=== PATIENT | male | born 1940 | race Caucasian/White ===

== ENCOUNTER 2017-04-26 07:46 | Inpatient (IN) | payer OTHER, MEDICARE ==
[~2017-04-26] VITALS: Ht 177.8 cm; Wt 92.0 kg
[2017-04-26 07:47] VITALS: BP 174/75; PULSE 67; RESP 16; TEMP 99.1; O2SAT 96
[2017-04-26] MEDS ORDERED: ONDANSETRON HCL 4 MG/2 ML VIAL IV PUSH ONE (08:00)
--- NOTE | 2017-04-26 08:09 | PD ---
HPI Chief Complaint: GI Complaint Time Seen by Provider: 07:55 Travel History International Travel<30 days: No Contact w/Intl Traveler<30days: No Traveled to known affect area: No History of Present Illness HPI 77 y/o male presents with lower abdominal pain and nausea over the past couple of days. He states he has history of diverticulitis. He states he had a colonoscopy but did not have adequate prep but they did tell him he had diverticulitis. He states that he also [place] any bowel they just saw the area. He denies any other concurrent complaints. Quality is pressure. Severity is moderate. He denies other specific modifying factors. Location is bilateral lower. PFSH Past Medical History Narrative Medical Hypothyroid, high cholesterol, diverticulitis Past Surgical History Narrative Surgical Hernia, diagnostic laparoscopic examination Social History Alcohol Use: No Tobacco Use: No Substance Use: No Allergies-Medications (Allergen,Severity, Reaction): Coded Allergies: No Known Allergies (Unverified , 04/26/17) Review of Systems Except as stated in HPI: all other systems reviewed are Neg Physical Exam Narrative GENERAL: 77-year-old male in no apparent distress SKIN: Focused skin assessment warm/dry. HEAD: Atraumatic. Normocephalic. EYES: Pupils equal and round. No scleral icterus. No injection or drainage. ENT: No nasal bleeding or discharge. Mucous membranes pink and moist. NECK: Trachea midline. No JVD. CARDIOVASCULAR: Regular rate and rhythm. RESPIRATORY: No accessory muscle use. Clear to auscultation. Breath sounds equal bilaterally. GASTROINTESTINAL: Abdomen soft, tender to lower abdomen, nondistended. MUSCULOSKELETAL: No obvious deformities. NEUROLOGICAL: Awake and alert. No obvious cranial nerve deficits. Motor grossly within normal limits. Normal speech. PSYCHIATRIC: Appropriate mood and affect; insight and judgment normal. Data Data Last Documented VS Vital Signs Date Time Temp Pulse Resp B/P (MAP) Pulse Ox O2 Delivery O2 Flow Rate FiO2 04/26/17 07:47 99.1 67 16 174/75 (108) 96 Room Air Orders Orders Complete Blood Count With Diff (04/26/17 07:56) Comprehensive Metabolic Panel (04/26/17 07:56) Urinalysis - C+S If Indicated (04/26/17 07:56) Lipase (04/26/17 07:56) Ct Abd/Pel W Iv Contrast(Rout) (04/26/17 ) Iv Access Insert/Monitor (04/26/17 07:56) Ondansetron Inj (Zofran Inj) (04/26/17 08:00) Iohexol 350 Inj (Omnipaque 350 Inj) (04/26/17 09:11) Sodium Chlorid 0.9% 500 Ml Inj (Ns 500 M (04/26/17 10:15) Morphine Inj (Morphine Inj) (04/26/17 11:15) Ciprofloxacin 400 Mg Premix (Cipro 400 M (04/26/17 11:45) Metronidazole 500 Mg Inj (Flagyl 500 Mg (04/26/17 11:45) Admit Order (Ed Use Only) (04/26/17 11:44) Labs Laboratory Tests Test 04/26/17 08:10 04/26/17 08:15 White Blood Count 12.7 TH/MM3 Red Blood Count 4.67 MIL/MM3 Hemoglobin 14.3 GM/DL Hematocrit 42.7 % Mean Corpuscular Volume 91.4 FL Mean Corpuscular Hemoglobin 30.6 PG Mean Corpuscular Hemoglobin Concent 33.4 % Red Cell Distribution Width 12.8 % Platelet Count 224 TH/MM3 Mean Platelet Volume 8.8 FL Neutrophils (%) (Auto) 74.9 % Lymphocytes (%) (Auto) 14.0 % Monocytes (%) (Auto) 9.8 % Eosinophils (%) (Auto) 0.9 % Basophils (%) (Auto) 0.4 % Neutrophils # (Auto) 9.5 TH/MM3 Lymphocytes # (Auto) 1.8 TH/MM3 Monocytes # (Auto) 1.2 TH/MM3 Eosinophils # (Auto) 0.1 TH/MM3 Basophils # (Auto) 0.1 TH/MM3 CBC Comment DIFF FINAL Differential Comment Blood Urea Nitrogen 17 MG/DL Creatinine 1.09 MG/DL Random Glucose 131 MG/DL Total Protein 7.9 GM/DL Albumin 4.0 GM/DL Calcium Level 9.1 MG/DL Alkaline Phosphatase 78 U/L Aspartate Amino Transf (AST/SGOT) 28 U/L Alanine Aminotransferase (ALT/SGPT) 27 U/L Total Bilirubin 0.9 MG/DL Sodium Level 137 MEQ/L Potassium Level 4.1 MEQ/L Chloride Level 103 MEQ/L Carbon Dioxide Level 29.0 MEQ/L Anion Gap 5 MEQ/L Estimat Glomerular Filtration Rate 66 ML/MIN Lipase 333 U/L Urine Color YELLOW Urine Turbidity CLEAR Urine pH 7.5 Urine Specific [place] GREATER THAN 1.050 Urine Protein TRACE mg/dL Urine Glucose (UA) NEG mg/dL Urine Ketones NEG mg/dL Urine Occult Blood NEG Urine Nitrite NEG Urine Bilirubin NEG Urine Urobilinogen LESS THAN 2.0 MG/DL Urine Leukocyte Esterase NEG Urine RBC LESS THAN 1 /hpf Urine WBC LESS THAN 1 /hpf Urine Mucus FEW /lpf Microscopic Urinalysis Comment CULT NOT INDICATED MDM Medical Decision Making Medical Screen Exam Complete: Yes Emergency Medical Condition: Yes Medical Record Reviewed: Yes (Past history confirmed) Interpretation(s) CBC & BMP Diagram 04/26/17 08:10 Total Protein 7.9, Albumin 4.0, Calcium Level 9.1, Alkaline Phosphatase 78, Aspartate Amino Transf (AST/SGOT) 28, Alanine Aminotransferase (ALT/SGPT) 27, Total Bilirubin 0.9 Last 24 hours Impressions Abdomen/Pelvis CT 04/26/17 0000 Signed Impressions: Service Date/Time: Wednesday, April 26, 2017 09:13 - CONCLUSION: 1. Findings are suspicious for diverticulitis with induration of the fat about a long segment of proximal and mid sigmoid (11 cm). 2. No focal abscess and no evidence of free fluid. Minesh Jonas MD Differential Diagnosis Diverticulitis, abscess, stone, UTI Narrative Course We will check blood work, urinalysis, CT scan abdominal pelvis and dose with Zofran and fluids and reevaluate ed workup with 11 cm area of diverticulitis. Given morphine and agrees to observation. Will dose with Cipro and Flagyl Physician Communication Physician Communication dr bartlett agrees to admit Diagnosis Primary Impression: Diverticulitis Admitting Information Admitting Physician Requests: Observation Gabby Naranjo MD Apr 26, 2017 08:09
[2017-04-26 08:39] LABS: AUTOMATED NEUTROPHIL # 9.5 TH/MM3 (1.8-7.7); BASOPHIL # 0.1 TH/MM3 (0-0.2); BASOPHIL % 0.4 % (0.0-2.0); EOSINOPHIL # 0.1 TH/MM3 (0-0.4); EOSINOPHIL % 0.9 % (0.0-4.0); HEMATOCRIT 42.7 % (39.0-51.0); HEMOGLOBIN 14.3 GM/DL (13.0-17.0); LYMPHOCYTE # 1.8 TH/MM3 (1.0-4.8); MEAN CELL VOLUME 91.4 FL (80.0-100.0); MEAN CORPUSCULAR HEMOGLOBIN 30.6 PG (27.0-34.0); MEAN CORPUSCULAR HGB CONC 33.4 % (32.0-36.0); MEAN PLATELET VOLUME 8.8 FL (7.0-11.0); MONO % 9.8 % (0.0-8.0); MONOCYTE # 1.2 TH/MM3 (0-0.9); NEUT % 74.9 % (16.0-70.0); PLATELET COUNT 224 TH/MM3 (150-450); RED BLOOD COUNT 4.67 MIL/MM3 (4.50-5.90); RED CELL DISTRIBUTION WIDTH 12.8 % (11.6-17.2); WHITE BLOOD COUNT 12.7 TH/MM3 (4.0-11.0)
[2017-04-26 08:53] LABS: AST (GOT) 28 U/L (15-37); BLOOD UREA NITROGEN 17 MG/DL (7-18); CALCIUM 9.1 MG/DL (8.5-10.1); CHLORIDE 103 MEQ/L (98-107); CREATININE 1.09 MG/DL (0.60-1.30); GLOMERULAR FILTRATION RATE 66 ML/MIN (>89); GLUCOSE,RANDOM 131 MG/DL (74-106); SODIUM (NA) 137 MEQ/L (136-145)
[2017-04-26 08:55] LABS: ALT (GPT) 27 U/L (12-78)
[2017-04-26 08:57] LABS: ALKALINE PHOSPHATASE 78 U/L (45-117); TOTAL BILIRUBIN ADULT 0.9 MG/DL (0.2-1.0); TOTAL PROTEIN 7.9 GM/DL (6.4-8.2)
[2017-04-26] MEDS ORDERED: IOHEXOL 350 MG/ML 10 ML VIAL (for RAD DIAG) IVCONTRAST ONE (09:11)
--- NOTE | 2017-04-26 09:46 | RADRPT ---
EXAM DATE/TIME: 04/26/2017 09:13 [facility] COMPARISON: No previous studies available for comparison. INDICATIONS : Lower abdominal pain. IV CONTRAST: 96 cc Omnipaque 350 (iohexol) IV ORAL CONTRAST: No oral contrast ingested. RADIATION DOSE: 13.82 CTDIvol (mGy) MEDICAL HISTORY : Diverticulitis. SURGICAL HISTORY : None. ENCOUNTER: Initial ACUITY: 3 days PAIN SCALE: 6/10 LOCATION: Bilateral lower quadrant TECHNIQUE: Volumetric scanning of the abdomen and pelvis was performed. Using automated exposure control and ad justment of the mA and/or kV according to patient size, radiation dose was kept as low as reasonably achievable to obtain optimal diagnostic quality images. DICOM format image data is available electro nically for review and comparison. FINDINGS: LOWER LUNGS: The visualized lower lungs are clear. LIVER: Homogeneous density without lesion. There is no dilation of the biliary tree. No calcified [place] es. SPLEEN: Normal size without lesion. PANCREAS: Within normal limits. KIDNEYS: Normal in size and shape. There is no mass, stone or hydronephrosis. ADRENAL GLANDS: Within normal limits. VASCULAR: There is no aortic aneurysm. BOWEL/MESENTERY: No dilated loops of small or large bowel. There is scattered diverticula throughout the transverse l eft and sigmoid colon. There is an abnormal appearance to the fat about the proximal and mid sigmoid colon with induration of the perisigmoid fat characteristic of diverticulitis. The induration exten ds in excess of 11 cm in length. No focal fluid collections seen and no evidence of free fluid. ABDOMINAL WALL: Within normal limits. RETROPERITONEUM: There is no lymphadenopathy. BLADDER: No wall thickening or mass. REPRODUCTIVE: Within normal limits. INGUINAL: There is no lymphadenopathy or hernia. MUSCULOSKELETAL: Mild right lumbar curvature and degenerative changes in the posterior elements. CONCLUSION: 1. Findings are suspicious for diverticulitis with induration of the fat about a long segment of prox imal and mid sigmoid (11 cm). 2. No focal abscess and no evidence of free fluid. Minesh Jonas MD on April 26, 2017 at 9:31 Board Certified Radiologist. This report was verified electronically.
[2017-04-26] MEDS ORDERED: SODIUM CHLORID 0.9% 500 ML INJ 500 ML IV ONE (10:15)
[2017-04-26 10:52] LABS: BILIRUBIN, URINE NEG (NEG); BLOOD, URINE NEG (NEG); GLUCOSE,URINE NEG (NEG); KETONE, URINE NEG (NEG); MUCUS URINE FEW /lpf (OCC); NITRITE,URINE NEG (NEG); PH, URINE 7.5 (5.0-8.5); URINE COLOR YELLOW (YELLW/STRAW); URINE LEUKOCYTE ESTERASE NEG (NEG)
[2017-04-26] MEDS ORDERED: MORPHINE SULFATE 4 MG/ML INJ IV PUSH ONE (11:15)
[2017-04-26] MEDS ORDERED: metroNIDAZOLE 500 MG INJ 100 ML IV ONE (11:45)
[2017-04-26] MEDS ORDERED: CIPROFLOXACIN 400 MG PREMIX 200 ML IV ONE (11:45)
[2017-04-26] MEDS ORDERED: MORPHINE SULFATE 4 MG/ML INJ IV PUSH PRN (12:15)
[2017-04-26] MEDS ORDERED: SODIUM CHLORIDE 0.9% FLUSH 10 ML FLUSH IV FLUSH PRN (12:15)
[2017-04-26] MEDS ORDERED: ONDANSETRON HCL 4 MG/2 ML VIAL IV PUSH PRN (12:15)
[2017-04-26] MEDS ORDERED: ACETAMINOPHEN 325 MG TAB PO PRN (12:15)
[2017-04-26] MEDS ORDERED: ENALAPRILAT 2.5 MG/2 ML VIAL IV PUSH PRN (12:15)
[2017-04-26 12:55] VITALS: BP 120/70; PULSE 68; RESP 18; TEMP 98.2; O2SAT 96
--- NOTE | 2017-04-26 13:08 | HHI.HP ---
[facility] Primary Care Physician Gary Michaels MD Admission Diagnosis diverticulitis Diagnoses: (1) Acute diverticulitis Chief Complaint: Abdominal pain Travel History International Travel<30 Days: No Contact w/Intl Traveler <30 Da: No Traveled to Known Affected Are: No History of Present Illness 77-year-old man with a history of diverticular disease, thyroid disease, hyperlipidemia came to the emergency department for evaluation of worsening symptoms of diffuse abdominal pain x 3 days duration, rated 8/10 in intensity associated with dry hives and nausea. Patient reports prior history of diverticulitis treated with by mouth antibiotics some years ago. States, this a.m. the abdominal pain was so severe that he decided to check himself to the emergency department. CT abdomen revealed findings suspicious for diverticulitis and patient has elevated WBC. He denies any febrile episode and he has no chest pain Review of Systems Except as stated in HPI: all other systems reviewed are Neg Past Family Social History Past Medical History Hypothyroid, Hyperlipidemia History of diverticulitis Past Surgical History Hernia repair, diagnostic laparoscopic examination Reported Medications See EMR Allergies: Coded Allergies: No Known Allergies (Unverified , 04/26/17) Family History Hypertension Social History Alcohol Use: No Tobacco Use: No Substance Use: No Physical Exam Vital Signs Vital Signs Date Time Temp Pulse Resp B/P (MAP) Pulse Ox O2 Delivery O2 Flow Rate FiO2 04/26/17 12:55 98.2 68 18 120/70 (87) 96 04/26/17 07:47 99.1 67 16 174/75 (108) 96 Room Air Physical Exam GENERAL: This is a well-nourished, well-developed patient, in no apparent distress. SKIN: No rashes, ecchymoses or lesions. Cool and dry. HEAD: Atraumatic. Normocephalic. No temporal or scalp tenderness. EYES: Pupils equal round and reactive. Extraocular motions intact. No scleral icterus. No injection or drainage. ENT: Nose without bleeding, purulent drainage or septal hematoma. Throat without erythema, tonsillar hypertrophy or exudate. Uvula midline. Airway patent. NECK: Trachea midline. No JVD or lymphadenopathy. Supple, nontender, no meningeal signs. CARDIOVASCULAR: Regular rate and rhythm without murmurs, gallops, or rubs. RESPIRATORY: Clear to auscultation. Breath sounds equal bilaterally. No wheezes , rales, or rhonchi. GASTROINTESTINAL: Abdomen soft, mildly tender, nondistended. No hepato- splenomegaly, or palpable masses. No guarding. MUSCULOSKELETAL: Extremities without clubbing, cyanosis, or edema. No joint tenderness, effusion, or edema noted. No calf tenderness. Negative Homans sign bilaterally. NEUROLOGICAL: Awake and alert. Cranial nerves II through XII intact. Motor and sensory grossly within normal limits. Five out of 5 muscle strength in all muscle groups. Normal speech. Laboratory Laboratory Tests Test 04/26/17 08:10 04/26/17 08:15 White Blood Count 12.7 Red Blood Count 4.67 Hemoglobin 14.3 Hematocrit 42.7 Mean Corpuscular Volume 91.4 Mean Corpuscular Hemoglobin 30.6 Mean Corpuscular Hemoglobin Concent 33.4 Red Cell Distribution Width 12.8 Platelet Count 224 Mean Platelet Volume 8.8 Neutrophils (%) (Auto) 74.9 Lymphocytes (%) (Auto) 14.0 Monocytes (%) (Auto) 9.8 Eosinophils (%) (Auto) 0.9 Basophils (%) (Auto) 0.4 Neutrophils # (Auto) 9.5 Lymphocytes # (Auto) 1.8 Monocytes # (Auto) 1.2 Eosinophils # (Auto) 0.1 Basophils # (Auto) 0.1 CBC Comment DIFF FINAL Differential Comment Blood Urea Nitrogen 17 Creatinine 1.09 Random Glucose 131 Total Protein 7.9 Albumin 4.0 Calcium Level 9.1 Alkaline Phosphatase 78 Aspartate Amino Transf (AST/SGOT) 28 Alanine Aminotransferase (ALT/SGPT) 27 Total Bilirubin 0.9 Sodium Level 137 Potassium Level 4.1 Chloride Level 103 Carbon Dioxide Level 29.0 Anion Gap 5 Estimat Glomerular Filtration Rate 66 Lipase 333 Urine Color YELLOW Urine Turbidity CLEAR Urine pH 7.5 Urine Specific [place] GREATER THAN 1.050 Urine Protein TRACE Urine Glucose (UA) NEG Urine Ketones NEG Urine Occult Blood NEG Urine Nitrite NEG Urine Bilirubin NEG Urine Urobilinogen LESS THAN 2.0 Urine Leukocyte Esterase NEG Urine RBC LESS THAN 1 Urine WBC LESS THAN 1 Urine Mucus FEW Microscopic Urinalysis Comment CULT NOT INDICATED Result Diagram: 04/26/17 0810 04/26/17 0810 Imaging Last Impressions Abdomen/Pelvis CT 04/26/17 0000 Signed Impressions: Service Date/Time: Wednesday, April 26, 2017 09:13 - CONCLUSION: 1. Findings are suspicious for diverticulitis with induration of the fat about a long segment of proximal and mid sigmoid (11 cm). 2. No focal abscess and no evidence of free fluid. Minesh Jonas MD Septic Shock Reassessment Septic shock perfusion: reassessment completed Caprini VTE Risk Assessment Caprini VTE Risk Assessment: Mod/High Risk (score >= 2) Caprini Risk Assessment Model Point Value = 1 Point Value = 2 Point Value = 3 Point Value = 5 Age 41-60 Minor surgery BMI > 25 kg/m2 Swollen legs Varicose veins or History of unexplained or recurrent spontaneous Oral contraceptives or hormone replacement Sepsis (< 1 month) Serious lung disease, including pneumonia (< 1 month) Abnormal pulmonary function Acute myocardial infarction Congestive heart failure (< 1 month) History of inflammatory bowel disease Medical patient at bed rest Age 61-74 Arthroscopic surgery Major open surgery (> 45 min) Laparoscopic surgery (> 45 min) Malignancy Confined to bed (> 72 hours) Immobilizing plaster cast Central venous access Age >= 75 History of VTE Family history of VTE Factor V Leiden Prothrombin [id number] Lupus anticoagulant Anticardiolipin antibodies Elevated serum homocysteine Heparin-induced thrombocytopenia Other congenital or acquired thrombophilia Stroke (< 1 month) Elective arthroplasty Hip, pelvis, or leg fracture Acute spinal cord injury (< 1 month) Prophylaxis Regimen Total Risk Factor Score Risk Level Prophylaxis Regimen 0-1 Low Early ambulation 2 Moderate Order ONE of the following: *Sequential Compression Device (SCD) *Heparin 5000 units SQ BID 3-4 Higher Order ONE of the following medications: *Heparin 5000 units SQ TID *Enoxaparin/Lovenox 40 mg SQ daily (WT < 150 kg, CrCl > 30 mL/min) *Enoxaparin/Lovenox 30 mg SQ daily (WT < 150 kg, CrCl > 10-29 mL/min) *Enoxaparin/Lovenox 30 mg SQ BID (WT < 150 kg, CrCl > 30 mL/min) AND/OR *Sequential Compression Device (SCD) 5 or more Highest Order ONE of the following medications: *Heparin 5000 units SQ TID (Preferred with Epidurals) *Enoxaparin/Lovenox 40 mg SQ daily (WT < 150 kg, CrCl > 30 mL/min) *Enoxaparin/Lovenox 30 mg SQ daily (WT < 150 kg, CrCl > 10-29 mL/min) *Enoxaparin/Lovenox 30 mg SQ BID (WT < 150 kg, CrCl > 30 mL/min) AND *Sequential Compression Device (SCD) Assessment and Plan Problem List: (1) Diverticulitis ICD Code: K57.92 - Diverticulitis of intestine, part unspecified, without perforation or abscess without bleeding Status: Acute Assessment and Plan 77-year-old man with Acute diverticulitis CT noted and reviewed by me with finding suspicious for diverticulitis Treat with IV Cipro and Flagyl Continue IV fluid hydration, pain management accordingly Start clear liquid and advance diet as tolerated Leukocytosis Treat as in above Hypertension Hydralazine 50 mg every 8H, Vasotec when necessary Hyperlipidemia/hypothyroidism Obtain patient's medication list and resume accordingly DVT prophylaxis: Bilateral SCDs Code Status Full code Discussed Condition With Patient, ED physician Hu Welch MD Apr 26, 2017 13:08
[2017-04-26] MEDS: SODIUM CHLOR 0.9% 1000 ML INJ 1,000 ML IV SCH ×2 (13:47→22:03)
[2017-04-26] MEDS: hydrALAZINE HCL 50 MG TAB PO SCH ×2 (14:00→22:01)
[2017-04-26] MEDS ORDERED: LIPI20TA PO (14:49)
[2017-04-26] MEDS ORDERED: ESCI20TA PO (16:11)
[2017-04-26] MEDS ORDERED: DONE10TA7 PO (16:11)
[2017-04-26] MEDS ORDERED: LEVO50TA4 PO (16:12)
[2017-04-26] MEDS ORDERED: ASPI81CH6 CHEW (16:13)
[2017-04-26] MEDS ORDERED: TIZA2CAP3 PO (16:13)
[2017-04-26 16:54] VITALS: BP 120/68; PULSE 88; RESP 20; TEMP 98.2; O2SAT 96
[2017-04-26 19:54] VITALS: BP 145/70; PULSE 75; RESP 18; TEMP 99.5; O2SAT 94
[2017-04-26] MEDS: SODIUM CHLORIDE 0.9% FLUSH 10 ML FLUSH IV FLUSH SCH (21:00)
[2017-04-26] MEDS: metroNIDAZOLE 500 MG INJ 100 ML IV SCH (22:01)
[2017-04-26] MEDS: CIPROFLOXACIN 400 MG PREMIX 200 ML IV SCH (23:22)
[2017-04-27] VITALS (7 sets, daily range): BP systolic 108–139; BP diastolic 63–80; PULSE 59–79; RESP 18–20; TEMP 96.2–99.9; O2SAT 93–99
[2017-04-27] MEDS: SODIUM CHLOR 0.9% 1000 ML INJ 1,000 ML IV SCH ×2 (01:51→12:41)
[2017-04-27] MEDS: metroNIDAZOLE 500 MG INJ 100 ML IV SCH ×3 (04:04→20:43)
[2017-04-27] MEDS: hydrALAZINE HCL 50 MG TAB PO SCH ×3 (05:34→22:33)
[2017-04-27] MEDS: ACETAMINOPHEN/HYDROcodone 325 MG/5 MG TAB PO PRN ×3 (05:44→20:52)
[2017-04-27 07:04] LABS: AUTOMATED NEUTROPHIL # 7.5 TH/MM3 (1.8-7.7); BASOPHIL % 0.2 % (0.0-2.0); EOSINOPHIL # 0.1 TH/MM3 (0-0.4); EOSINOPHIL % 0.8 % (0.0-4.0); HEMOGLOBIN 12.7 GM/DL (13.0-17.0); LYMPH % 15.3 % (9.0-44.0); LYMPHOCYTE # 1.6 TH/MM3 (1.0-4.8); MEAN CELL VOLUME 91.4 FL (80.0-100.0); MEAN CORPUSCULAR HEMOGLOBIN 31.4 PG (27.0-34.0); MEAN CORPUSCULAR HGB CONC 34.4 % (32.0-36.0); MEAN PLATELET VOLUME 8.8 FL (7.0-11.0); MONO % 10.8 % (0.0-8.0); MONOCYTE # 1.1 TH/MM3 (0-0.9); NEUT % 72.9 % (16.0-70.0); PLATELET COUNT 156 TH/MM3 (150-450); RED BLOOD COUNT 4.04 MIL/MM3 (4.50-5.90); RED CELL DISTRIBUTION WIDTH 13.1 % (11.6-17.2); WHITE BLOOD COUNT 10.4 TH/MM3 (4.0-11.0)
[2017-04-27 07:36] LABS: BICARBONATE 29.5 MEQ/L (21.0-32.0); CALCIUM 8.3 MG/DL (8.5-10.1); CREATININE 0.89 MG/DL (0.60-1.30)
[2017-04-27] MEDS: SODIUM CHLORIDE 0.9% FLUSH 10 ML FLUSH IV FLUSH SCH ×2 (09:00→20:43)
--- NOTE | 2017-04-27 11:01 | HHI.PR ---
Subjective Remarks in no acute distress. abdominal pain is better. no nausea or vomiting. tolerating the clear liquid diet. Objective Vitals Vital Signs Date Time Temp Pulse Resp B/P (MAP) Pulse Ox O2 Delivery O2 Flow Rate FiO2 04/27/17 08:00 96.2 70 20 139/77 (97) 94 04/27/17 03:55 98.4 68 18 127/80 (96) 93 04/27/17 00:00 99.9 79 18 108/63 (78) 93 04/26/17 19:54 99.5 75 18 145/70 (95) 94 04/26/17 16:54 98.2 88 20 120/68 (85) 96 04/26/17 12:55 98.2 68 18 120/70 (87) 96 I/O 04/26/17 04/26/17 04/26/17 04/27/17 04/27/17 04/27/17 07:00 15:00 23:00 07:00 15:00 23:00 Intake Total 1050 ml 800 ml 1760 ml Balance 1050 ml 800 ml 1760 ml Intake Oral 250 ml 400 ml 360 ml IV Total 800 ml 400 ml 1400 ml # Voids 1 # Bowel Movements 0 Result Diagram: 04/27/17 0545 04/27/17 0545 Imaging Last Impressions Abdomen/Pelvis CT 04/26/17 0000 Signed Impressions: Service Date/Time: Wednesday, April 26, 2017 09:13 - CONCLUSION: 1. Findings are suspicious for diverticulitis with induration of the fat about a long segment of proximal and mid sigmoid (11 cm). 2. No focal abscess and no evidence of free fluid. Minesh Jonas MD Objective Remarks GENERAL: This is a well-nourished, well-developed patient, in no apparent distress. CARDIOVASCULAR: Regular rate and regular rhythm without murmurs, gallops, or rubs. RESPIRATORY: Clear to auscultation. Breath sounds equal bilaterally. No wheezes , rales, or rhonchi. GASTROINTESTINAL: Abdomen soft, mild generalized tenderness, nondistended. Normal, active bowel sounds MUSCULOSKELETAL: Extremities without clubbing, cyanosis, or edema. NEURO: Alert & Oriented x4 to person, place, time, situation. Moves all ext x4 Medications and IVs Inpatient Medications Acetaminophen (Tylenol) 650 mg Q4H PRN PO FEVER; Start 04/26/17 at 12:15 Acetaminophen/ Hydrocodone Bitart ([place] 5-325 Mg) 1 tab Q4H PRN PO PAIN SCALE 1 TO 5 Last administered on 04/27/17at 05:44; Start 04/26/17 at 12:15 Ciprofloxacin/ Dextrose 200 ml @ 200 mls/hr Q12H IV Last administered on at 23:22; Start 04/27/17 at 00:00 Enalaprilat (Vasotec Inj) 2.5 mg Q6H PRN IV PUSH SBP>160, DBP>90; Start at 12:15 Hydralazine HCl (Apresoline) 50 mg Q8HR PO Last administered on 04/27/17at 05:34 ; Start 04/26/17 at 14:00 Metronidazole 100 ml @ 100 mls/hr Q8H IV Last administered on 04/27/17at 04:04 ; Start 04/26/17 at 20:00 Morphine Sulfate (Morphine Inj) 2 mg Q4H PRN IV PUSH PAIN SCALE 6 TO 10; Start 04/26/17 at 12:15 Ondansetron HCl (Zofran Inj) 4 mg Q6H PRN IV PUSH NAUSEA Last administered on at 05:44; Start 04/26/17 at 12:15 Sodium Chloride (NS Flush) 2 ml BID IV FLUSH ; Start 04/26/17 at 21:00 A/P Problem List: (1) Acute diverticulitis ICD Code: K57.92 - Diverticulitis of intestine, part unspecified, without perforation or abscess without bleeding Assessment and Plan Acute diverticulitis- clinically improving. continue with IV Cipro and Flagyl Continue IV fluid hydration, pain management accordingly advance the diet. Leukocytosis-improved. T Hypertension Hydralazine 50 mg every 8H, Vasotec when necessary Hyperlipidemia/hypothyroidism Obtain patient's medication list and resume accordingly DVT prophylaxis: Bilateral SCDs Discharge Planning dc home tomorrow if stable and tolerates the diet. Von Marti MD Apr 27, 2017 11:01
[2017-04-27] MEDS: CIPROFLOXACIN 400 MG PREMIX 200 ML IV SCH (12:47)
[2017-04-28] MEDS: CIPROFLOXACIN 400 MG PREMIX 200 ML IV SCH (00:01)
[2017-04-28] MEDS: metroNIDAZOLE 500 MG INJ 100 ML IV SCH ×2 (03:28→13:29)
[2017-04-28 05:34] VITALS: BP 139/67; PULSE 66
[2017-04-28] MEDS: hydrALAZINE HCL 50 MG TAB PO SCH ×2 (05:35→13:17)
[2017-04-28 08:00] VITALS: BP 120/69; PULSE 75; RESP 18; TEMP 98.5; O2SAT 98
--- NOTE | 2017-04-28 08:40 | HHI.PR ---
Subjective Remarks in no acute distress. afebrile. abdominal pain has much improved. tolerated the full liquid diet. no other complaints. Objective Vitals Vital Signs Date Time Temp Pulse Resp B/P (MAP) Pulse Ox O2 Delivery O2 Flow Rate FiO2 04/28/17 05:34 66 139/67 (91) 04/27/17 22:31 98.0 59 18 134/76 (95) 96 04/27/17 19:25 97.4 62 18 125/65 (85) 98 04/27/17 16:00 98.3 59 18 124/69 (87) 99 04/27/17 12:00 98.4 62 18 137/79 (98) 94 I/O 04/27/17 04/27/17 04/27/17 04/28/17 04/28/17 04/28/17 07:00 15:00 23:00 07:00 15:00 23:00 Intake Total 1760 ml 600 ml 200 ml 2762 ml Balance 1760 ml 600 ml 200 ml 2762 ml Intake Oral 360 ml 600 ml 1020 ml IV Total 1400 ml 200 ml 1742 ml # Voids 1 4 2 # Bowel Movements 0 0 Result Diagram: 04/27/17 0545 04/27/17 0545 Imaging Last Impressions Abdomen/Pelvis CT 04/26/17 0000 Signed Impressions: Service Date/Time: Wednesday, April 26, 2017 09:13 - CONCLUSION: 1. Findings are suspicious for diverticulitis with induration of the fat about a long segment of proximal and mid sigmoid (11 cm). 2. No focal abscess and no evidence of free fluid. Minesh Jonas MD Objective Remarks GENERAL: This is a well-nourished, well-developed patient, in no apparent distress. CARDIOVASCULAR: Regular rate and regular rhythm without murmurs, gallops, or rubs. RESPIRATORY: Clear to auscultation. Breath sounds equal bilaterally. No wheezes , rales, or rhonchi. GASTROINTESTINAL: Abdomen soft, minimal generalized tenderness, nondistended. Normal, active bowel sounds MUSCULOSKELETAL: Extremities without clubbing, cyanosis, or edema. NEURO: Alert & Oriented x4 to person, place, time, situation. Moves all ext x4 Procedures none Medications and IVs Inpatient Medications Acetaminophen (Tylenol) 650 mg Q4H PRN PO FEVER; Start 04/26/17 at 12:15 Acetaminophen/ Hydrocodone Bitart ([place] 5-325 Mg) 1 tab Q4H PRN PO PAIN SCALE 1 TO 5 Last administered on 04/27/17at 20:52; Start 04/26/17 at 12:15 Ciprofloxacin/ Dextrose 200 ml @ 200 mls/hr Q12H IV Last administered on at 00:01; Start 04/27/17 at 00:00 Enalaprilat (Vasotec Inj) 2.5 mg Q6H PRN IV PUSH SBP>160, DBP>90; Start at 12:15 Hydralazine HCl (Apresoline) 50 mg Q8HR PO Last administered on 04/28/17at 05:35 ; Start 04/26/17 at 14:00 Metronidazole 100 ml @ 100 mls/hr Q8H IV Last administered on 04/28/17at 03:28 ; Start 04/26/17 at 20:00 Morphine Sulfate (Morphine Inj) 2 mg Q4H PRN IV PUSH PAIN SCALE 6 TO 10; Start 04/26/17 at 12:15 Ondansetron HCl (Zofran Inj) 4 mg Q6H PRN IV PUSH NAUSEA Last administered on at 05:44; Start 04/26/17 at 12:15 Sodium Chloride (NS Flush) 2 ml BID IV FLUSH ; Start 04/26/17 at 21:00 A/P Problem List: (1) Acute diverticulitis ICD Code: K57.92 - Diverticulitis of intestine, part unspecified, without perforation or abscess without bleeding Assessment and Plan Acute diverticulitis- clinically improving. continue with IV Cipro and Flagyl; switch to po. pain management accordingly advance the diet. Leukocytosis-improved. Hypertension Hydralazine 50 mg every 8H, Vasotec when necessary Hyperlipidemia/hypothyroidism Obtain patient's medication list and resumed accordingly DVT prophylaxis: Bilateral SCDs Discharge Planning dc home today. see med list. f/u; pcp. d/w the patient. Von Marti MD Apr 28, 2017 08:40
[2017-04-28] MEDS ORDERED: METR-1 PO (08:41)
[2017-04-28] MEDS ORDERED: CIPR-9 PO (08:41)
--- NOTE | 2017-04-28 08:43 | HHI.DS ---
Discharge Summary Admission Date Apr 26, 2017 at 13:34 Discharge Date: Apr 28, 2017 Admitting Diagnosis diverticulitis (1) Acute diverticulitis ICD Code: K57.92 - Diverticulitis of intestine, part unspecified, without perforation or abscess without bleeding Diagnosis: Principal Procedures none Brief History - From Admission 77-year-old man with a history of diverticular disease, thyroid disease, hyperlipidemia came to the emergency department for evaluation of worsening symptoms of diffuse abdominal pain x 3 days duration, rated 8/10 in intensity associated with dry hives and nausea. Patient reports prior history of diverticulitis treated with by mouth antibiotics some years ago. States, this a.m. the abdominal pain was so severe that he decided to check himself to the emergency department. CT abdomen revealed findings suspicious for diverticulitis and patient has elevated WBC. He denies any febrile episode and he has no chest pain CBC/BMP: 04/27/17 0545 04/27/17 0545 Significant Findings Laboratory Tests Test 04/26/17 08:10 04/26/17 08:15 04/27/17 05:45 White Blood Count 12.7 TH/MM3 (4.0-11.0) Neutrophils (%) (Auto) 74.9 % (16.0-70.0) 72.9 % (16.0-70.0) Monocytes (%) (Auto) 9.8 % (0.0-8.0) 10.8 % (0.0-8.0) Neutrophils # (Auto) 9.5 TH/MM3 (1.8-7.7) Monocytes # (Auto) 1.2 TH/MM3 (0-0.9) 1.1 TH/MM3 (0-0.9) Random Glucose 131 MG/DL (74-106) 113 MG/DL (74-106) Estimat Glomerular Filtration Rate 66 ML/MIN (>89) 83 ML/MIN (>89) Urine Specific [place] GREATER THAN 1.050 Urine Mucus FEW /lpf (OCC) Red Blood Count 4.04 MIL/MM3 (4.50-5.90) Hemoglobin 12.7 GM/DL (13.0-17.0) Hematocrit 37.0 % (39.0-51.0) Calcium Level 8.3 MG/DL (8.5-10.1) Imaging Last Impressions Abdomen/Pelvis CT 04/26/17 0000 Signed Impressions: Service Date/Time: Wednesday, April 26, 2017 09:13 - CONCLUSION: 1. Findings are suspicious for diverticulitis with induration of the fat about a long segment of proximal and mid sigmoid (11 cm). 2. No focal abscess and no evidence of free fluid. Minesh Jonas MD PE at Discharge GENERAL: This is a well-nourished, well-developed patient, in no apparent distress. CARDIOVASCULAR: Regular rate and regular rhythm without murmurs, gallops, or rubs. RESPIRATORY: Clear to auscultation. Breath sounds equal bilaterally. No wheezes , rales, or rhonchi. GASTROINTESTINAL: Abdomen soft, minimal generalized tenderness, nondistended. Normal, active bowel sounds MUSCULOSKELETAL: Extremities without clubbing, cyanosis, or edema. NEURO: Alert & Oriented x4 to person, place, time, situation. Moves all ext x4 Hospital Course patient was admitted with acute diverticulitis. he was started on clear liquid diet which was gradually advance. pain control along with IV antibiotics initiated. his clinical condition improved. pain subsided and tolerated the diet. he will be discharged home with po antibiotics and follow-up with his pcp. Pt Condition on Discharge: Good Discharge Disposition: Discharge Home Discharge Time: <= 30 minutes Discharge Instructions DIET: Follow Instructions for: Heart Healthy Diet, Diverticulitis Diet Activities you can perform: Regular-No Restrictions Von Marti MD Apr 28, 2017 08:43
[2017-04-28] MEDS: ACETAMINOPHEN/HYDROcodone 325 MG/5 MG TAB PO PRN (08:58)
[2017-04-28] MEDS: SODIUM CHLORIDE 0.9% FLUSH 10 ML FLUSH IV FLUSH SCH (08:59)
[2017-04-28] MEDS: SODIUM CHLOR 0.9% 1000 ML INJ 1,000 ML IV SCH (08:59)
[2017-04-28 12:00] VITALS: BP 121/69; PULSE 59; RESP 18; TEMP 97.5; O2SAT 93
== END 2017-04-28 13:30 | disposition home or self-care (01) | DRG 392 ==
LOC: NEPC 07:46 → NEDA 11:46 → NEPGCP 12:29 → OBSVTOIN 13:34 → N06A 22:51
PROVIDERS: ADMIT Internal Medicine; ATTEND Internal Medicine
DX: K57.32 Diverticulitis of large intestine without perforation or abscess without bleeding (principal); I10 Essential (primary) hypertension; E78.5 Hyperlipidemia, unspecified; E03.9 Hypothyroidism, unspecified
CPT/HCPCS: 74177; 80048; 80053; 81001; 83690; 85025; 96361; 96374; 96375; J0744; J2270; J2405; J7030; J7040; Q9967